=== PATIENT | male | born 2000 | race Caucasian/White ===

== ENCOUNTER 2022-09-02 17:43 | Emergency (ER) | payer OTHER, SELFPAY ==
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
[2022-09-02 17:51] VITALS: BP 115/76; PULSE 80; O2SAT 97
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
[2022-09-02] MEDS: Acetaminophen 325 MG TABLET 975 MG PO (18:44)
[2022-09-02 20:32] VITALS: BP 119/84; PULSE 60; RESP 18; TEMP 36.8; O2SAT 97
[2022-09-02 22:18] VITALS: BP 120/78; PULSE 67; RESP 18; TEMP 36.6; O2SAT 98
== END 2022-09-02 23:18 | disposition home or self-care (01) ==
PROVIDERS: Emergency Provider Student in an Organized Health Care Education/Training Program
DX: S16.1XXA Strain of muscle, fascia and tendon at neck level, initial encounter (principal); S49.92XA Unspecified injury of left shoulder and upper arm, initial encounter; V43.52XA Car driver injured in collision with other type car in traffic accident, initial encounter; Y93.89 Activity, other specified; Y92.411 Interstate highway as the place of occurrence of the external cause; Y99.9 Unspecified external cause status
CPT/HCPCS: 72125; 73030; 99284